=== PATIENT | male | born 1935 | race Caucasian/White ===

== ENCOUNTER → 2016-08-06 | Outpatient (CLI) | payer MEDICARE ==
[~2016-08-06] MED LIST: AMLO10TA2 PO; ASPI-496 PO; ATOR40TA78 PO; CARV6.2512 PO; CHOL200040 PO; CLAR500T PO; CLOP75TA PO; FINA5TAB4 PO; FOLI0.8T2 PO; INDO50CA PO; INSU100C5 SQ-INSULIN; INSU100V10 SC; LOSA100T6 PO; METO50TA82 PO; METR500T PO; OMEG1CAP6 PO
== END | disposition home or self-care (01) ==
LOC: CFH 14:32
PROVIDERS: ATTEND Physician Assistant
DX: M19.031 Primary osteoarthritis, right wrist (principal); M25.831 Other specified joint disorders, right wrist